=== PATIENT | female | born 1955 | race Two or more races ===

== ENCOUNTER 2020-04-27 11:30 | Emergency (ER) | payer OTHER ==
[~2020-04-27] VITALS: Ht 157.5 cm; Wt 90.7 kg
--- NOTE | 2020-04-27 11:46 | NUR ---
LEFT WRIST PAIN AND BRUISED BOTH LEGS, SYNCOPAL EPISODE AT 7 PM LAST NIGHT. PATIENT A/OX4, BREATHING EVEN AND UNLABORED, NO SOB NOTED, NEEDS ATTENDED. KEPT COMFORTABLE.
[2020-04-27 12:13] LABS: BASOPHILS # (AUTO) 0.1 /CMM (0.0-0.2); BASOPHILS % (AUTO) 1.9 % (0.0-2.0); EOSINOPHILS % (AUTO) 4.4 % (0.0-6.0); HEMATOCRIT 33 % (33-45); HEMOGLOBIN 11.1 g/dL (11.5-14.8); LYMPHOCYTES # (AUTO) 2.3 /CMM (0.8-4.8); LYMPHOCYTES % (AUTO) 37.3 % (20.0-44.0); MEAN CORPUSCULAR HGB CONC 33 g/dl (31.0-36.0); MEAN CORPUSCULAR VOLUME 87 fL (82-100); MONOCYTES # (AUTO) 0.3 /CMM (0.1-1.30); MONOCYTES % (AUTO) 5.4 % (2.0-12.0); NEUTROPHILS # (AUTO) 3.2 /CMM (1.8-8.9); PLATELET COUNT (AUTO) 211 /CMM (150-450); RED BLOOD CELL COUNT(AUTO) 3.83 MIL/uL (4.0-5.2); WHITE BLOOD COUNT (AUTO) 6.3 K/uL (4.3-11.0)
[2020-04-27 12:24] LABS: CALCIUM, SERUM 9.2 mg/dL (8.5-10.1); CARBON DIOXIDE 28 mmol/L (21-32); CHLORIDE 103 mmol/L (98-107); CREATININE 1.3 mg/dL (0.6-1.3); GLUCOSE 157 mg/dL (74-106); POTASSIUM 3.8 mmol/L (3.5-5.1); SODIUM SERUM 138 mmol/L (136-145); UREA NITROGEN, BLOOD 29 mg/dL (7-18)
[2020-04-27 12:30] LABS: ALANINE AMINOTRANSFERASE 49 U/L (12-78); ALBUMIN 3.4 g/dL (3.4-5.0); ALKALINE PHOSPHATASE 159 U/L (46-116); ASPARTATE AMINOTRANSFERASE 34 U/L (15-37); BILIRUBIN,DIRECT 0.1 mg/dL (0.0-0.2); BILIRUBIN,TOTAL 0.5 mg/dL (0.2-1.0); TOTAL PROTEIN, SERUM 7.8 g/dL (6.4-8.2)
--- NOTE | 2020-04-27 14:14 | NUR ---
PATIENT A/OX4, AMBULATORY WITH WALKER. SPOKE TO DAUGHTER AND GAVE AN ADDRESS. INFORMED ADMITTING DEPARTMENT TO UPDATE CHART. VELCRO WRIST APPLIED ON LEFT ARM. Patient discharged to home in stable condition. Written and verbal after care instructions given. Patient verbalizes understanding of instruction.
[2020-04-27 14:19] VITALS: BP 160/90
== END 2020-04-27 14:21 | disposition home or self-care (01) ==
LOC: ER 11:30
DX: S80.02XA Contusion of left knee, initial encounter (principal); S80.01XA Contusion of right knee, initial encounter; I10 Essential (primary) hypertension; E11.9 Type 2 diabetes mellitus without complications; Z88.6 Allergy status to analgesic agent; W19.XXXA Unspecified fall, initial encounter; Y93.89 Activity, other specified; Y92.89 Other specified places as the place of occurrence of the external cause; Y99.8 Other external cause status
CPT/HCPCS: 36415; 71045-TC; 73110; 73130-TC; 80048-TC; 80076-TC; 84484-TC; 85025-TC; 85730-TC

== ENCOUNTER 2020-09-02 17:51 | Emergency (ER) | payer OTHER ==
[~2020-09-02] VITALS: Ht 154.9 cm; Wt 103.9 kg
--- NOTE | 2020-09-02 18:00 | NUR ---
AAOX3, BIB SON FROM HOME C/O RIGHT UPPER AND LOWER EXTREMITIES PAIN, PAIN AT THE BACK OF THE HEAD S/P SYNCOPAL EPISODE LAST NIGHT. SHE ALSO C/O DIZZINESS. RR IS EVEN AND UNLABORED WITH NAD NOTED. SKIN IS WARM AND DRY. PLACED ON THE MONITOR. AWAITING MD FOR EVAL.
[2020-09-02] MEDS ORDERED: IV NS 0.9% 1,000 ML BAG IV ONE (18:30)
[2020-09-02 18:45] LABS: BASOPHILS # (AUTO) 0.1 /CMM (0.0-0.2); BASOPHILS % (AUTO) 0.8 % (0.0-2.0); EOSINOPHILS % (AUTO) 5.2 % (0.0-6.0); HEMATOCRIT 33 % (33-45); HEMOGLOBIN 10.9 g/dL (11.5-14.8); LYMPHOCYTES # (AUTO) 2.7 /CMM (0.8-4.8); LYMPHOCYTES % (AUTO) 31.5 % (20.0-44.0); MEAN CORPUSCULAR HGB CONC 33 g/dl (31.0-36.0); MEAN CORPUSCULAR VOLUME 88 fL (82-100); MONOCYTES # (AUTO) 0.6 /CMM (0.1-1.30); MONOCYTES % (AUTO) 7.4 % (2.0-12.0); NEUTROPHILS # (AUTO) 4.8 /CMM (1.8-8.9); NEUTROPHILS % (AUTO) 55.1 % (43.0-81.0); PLATELET COUNT (AUTO) 211 /CMM (150-450); RED BLOOD CELL COUNT(AUTO) 3.75 MIL/uL (4.0-5.2); WHITE BLOOD COUNT (AUTO) 8.7 K/uL (4.3-11.0)
[2020-09-02 18:54] LABS: CALCIUM, SERUM 8.6 mg/dL (8.5-10.1); CARBON DIOXIDE 29 mmol/L (21-32); CHLORIDE 104 mmol/L (98-107); CREATININE 1.4 mg/dL (0.6-1.3); GLUCOSE 103 mg/dL (74-106); POTASSIUM 4.2 mmol/L (3.5-5.1); SODIUM SERUM 139 mmol/L (136-145); UREA NITROGEN, BLOOD 36 mg/dL (7-18)
[2020-09-02 19:00] LABS: ALANINE AMINOTRANSFERASE 48 U/L (12-78); ALBUMIN 3.2 g/dL (3.4-5.0); ALKALINE PHOSPHATASE 183 U/L (46-116); ASPARTATE AMINOTRANSFERASE 39 U/L (15-37); BILIRUBIN,DIRECT 0.1 mg/dL (0.0-0.2); BILIRUBIN,TOTAL 0.4 mg/dL (0.2-1.0); TOTAL PROTEIN, SERUM 7.8 g/dL (6.4-8.2)
--- NOTE | 2020-09-02 19:07 | NUR ---
BROUGHT TO CT
--- NOTE | 2020-09-02 19:11 | NUR ---
REPORT GIVEN TO ABHISHEK CHRISTOPHER.
--- NOTE | 2020-09-02 19:17 | NUR ---
BROUGHT BACK FROM CT, ASKED PT TO PROVIDE URINE SAMPLE. WILL CONTINUE TO MONITOR
[2020-09-02] MEDS ORDERED: KETOROLAC TROMETHAMINE INJ 30 MG/ML VIAL ONE (19:21)
--- NOTE | 2020-09-02 19:21 | NUR ---
PT C/O PAIN ON HER WHOLE R SIDE. STATED SHE FELL ON HER R SIDE, AND LOST CON. SITTER AT BEDSIDE FOR TRANSLATION.
--- NOTE | 2020-09-02 19:28 | NUR ---
SPOKE TO MD REGARDING PT'S PAIN, PT MEDICATED.
[2020-09-02 19:30] LABS: APPEARANCE,URINE Clear (CLEAR); BILIRUBIN,URINE Negative (NEGATIVE); BLOOD, URINE Trace-intact Ery/uL (NEGATIVE); COLOR,URINE Yellow (YELLOW); KETONES,URINE Negative (NEGATIVE); LEUKOCYTE ESTERASE ,URINE Trace (NEGATIVE); NITRITE, URINE Negative (NEGATIVE); PROTEIN,URINE Trace mg/dl (NEGATIVE); UGLUCOSE Negative (NEGATIVE); UROBILINOGEN,URINE 0.2 EU/dL (0.2)
[2020-09-02] MEDS ORDERED: KETOROLAC TROMETHAMINE INJ 30 MG/ML VIAL IV ONE (19:30)
--- NOTE | 2020-09-02 19:31 | NUR ---
URINE COLLECTED AND SENT TO LAB
[2020-09-02 19:38] LABS: BACTERIA,URINE Few /HPF (None Seen); SQUAMOUS EPITHELIAL CELL,UR Few /HPF (None Seen)
--- NOTE | 2020-09-02 20:52 | NUR ---
IV removed. Catheter intact and site benign. Pressure and 4x4 applied to site. No bleeding noted.
[2020-09-02] MEDS ORDERED: ACETAMINOPHEN ES 500 MG TABLET ONE (20:53)
--- NOTE | 2020-09-02 20:57 | NUR ---
Patient discharged to home in stable condition. Written and verbal after care instructions given. Patient verbalizes understanding of instruction and RX. Pt ambulated with steady gait. EMT placed a hard sole shoe on pt's R foot. Picked up by daughter.
[2020-09-02 20:58] VITALS: BP 132/72
[2020-09-02] MEDS ORDERED: ACETAMINOPHEN 325 MG TABLET PO ONE (21:00)
== END 2020-09-02 21:02 | disposition home or self-care (01) ==
LOC: ER 17:58
DX: S92.411A Displaced fracture of proximal phalanx of right great toe, initial encounter for closed fracture (principal); S92.311A Displaced fracture of first metatarsal bone, right foot, initial encounter for closed fracture; R55 Syncope and collapse; I10 Essential (primary) hypertension; E11.9 Type 2 diabetes mellitus without complications; Z88.5 Allergy status to narcotic agent; W18.39XA Other fall on same level, initial encounter; Y93.89 Activity, other specified; Y92.89 Other specified places as the place of occurrence of the external cause; Y99.8 Other external cause status
CPT/HCPCS: 36415; 70450; 73030; 73110; 73564; 73630; 80048; 80076; 81001; 84484; 85025; 87077; 87086; 87186; 93005; 96361; 96374; 99285; J1885; J7030; 81000-TC

== ENCOUNTER 2020-09-22 16:46 | Emergency (ER) | payer OTHER ==
[~2020-09-22] VITALS: Ht 160 cm; Wt 105.7 kg
[2020-09-22 17:00] VITALS: BP 189/99
--- NOTE | 2020-09-22 17:01 | NUR ---
PT BIB DAUGHT C/O OF FRACTURE TOE WHICH OCCURED ABOUT 2 WEEKS AGO BUT THAT THE PT AND ROBBIETER STATES THAT THE PAIN SEEMS TO HAVE GOTTEN WORSE. R BIG TOE IS THE AFFECTED AREA 06/28. VS CHECKED. AWAITING MD JAIME.
[2020-09-22] MEDS ORDERED: HYDROCODONE/APAP 5/325MG TABLET ONE (17:40)
[2020-09-22] MEDS ORDERED: HYDROCODONE/APAP 5/325MG TABLET PO ONE (18:00)
--- NOTE | 2020-09-22 18:33 | NUR ---
DC Patient discharged to home in stable condition. Written and verbal after care instructions given. Patient verbalizes understanding of instruction.
== END 2020-09-22 18:34 | disposition home or self-care (01) ==
LOC: ER 16:50
DX: S92.491A Other fracture of right great toe, initial encounter for closed fracture (principal); I10 Essential (primary) hypertension; E11.9 Type 2 diabetes mellitus without complications; Z88.5 Allergy status to narcotic agent; X58.XXXA Exposure to other specified factors, initial encounter; Y93.89 Activity, other specified; Y92.89 Other specified places as the place of occurrence of the external cause; Y99.8 Other external cause status

== ENCOUNTER 2020-11-13 16:18 | Emergency (ER) | payer OTHER ==
[~2020-11-13] VITALS: Ht 160 cm; Wt 102.1 kg
[2020-11-13] MEDS ORDERED: FAMO20TA8 PO (16:57)
[2020-11-13] MEDS ORDERED: METO50TA16 PO (16:57)
[2020-11-13] MEDS ORDERED: CITA20TA16 PO (16:57)
[2020-11-13] MEDS ORDERED: GABA300C PO (16:57)
[2020-11-13] MEDS ORDERED: LOSA100T31 PO (16:57)
[2020-11-13] MEDS ORDERED: METF-442 PO (16:57)
[2020-11-13] MEDS ORDERED: HYDR25TA4 PO (16:57)
[2020-11-13 18:44] VITALS: BP 136/68
== END 2020-11-13 20:17 | disposition home or self-care (01) ==
LOC: ER 16:24
DX: S92.411A Displaced fracture of proximal phalanx of right great toe, initial encounter for closed fracture (principal); I10 Essential (primary) hypertension; E11.9 Type 2 diabetes mellitus without complications; Z88.6 Allergy status to analgesic agent; Z79.899 Other long term (current) drug therapy; Z79.84 Long term (current) use of oral hypoglycemic drugs; W22.8XXA Striking against or struck by other objects, initial encounter; Y93.89 Activity, other specified; Y92.89 Other specified places as the place of occurrence of the external cause; Y99.8 Other external cause status
CPT/HCPCS: 73660-TC